=== PATIENT | male | born 1960 | race Caucasian/White ===

== ENCOUNTER 2017-02-02 14:33 | Emergency (ER) | payer MEDICAID ==
[~2017-02-02] VITALS: Ht 182.9 cm; Wt 94.5 kg
[~2017-02-02 14:33] MED LIST: LISI-660 PO; OMEP20 PO
[2017-02-02] MEDS ORDERED: LIDOCAINE HCL BUFFERED 1% 20 ML VIAL INJ ONE (16:30)
[2017-02-02 18:06] VITALS: BP 112/67
== END 2017-02-02 18:08 | disposition home or self-care (01) ==
LOC: EMS 14:34
DX: S61.012A Laceration without foreign body of left thumb without damage to nail, initial encounter (principal); F17.210 Nicotine dependence, cigarettes, uncomplicated; F41.9 Anxiety disorder, unspecified; F32.9 Major depressive disorder, single episode, unspecified; I10 Essential (primary) hypertension; W22.8XXA Striking against or struck by other objects, initial encounter; Y93.89 Activity, other specified; Y92.9 Unspecified place or not applicable; Y99.9 Unspecified external cause status
CPT/HCPCS: 12001; 99283; J3490

== ENCOUNTER 2017-02-17 00:41 | Emergency (ER) | payer MEDICAID ==
[~2017-02-17] VITALS: Ht 182.9 cm; Wt 94.0 kg
[2017-02-17] MEDS ORDERED: GABA-531 PO (00:48)
[2017-02-17] MEDS ORDERED: ASPI-556 PO (00:48)
[2017-02-17 03:44] LABS: BASOPHILS # (AUTO) 0.04 K/uL (0.00-0.20); BASOPHILS % (AUTO) 0.4 % (0.0-2.0); EOSINOPHILS # (AUTO) 0.28 K/uL (0.00-0.70); EOSINOPHILS % (AUTO) 2.54 % (1.0-6.0); HEMATOCRIT 45.2 % (41-53); HEMOGLOBIN 14.7 g/dL (13.5-17.5); LYMPHOCYTES # (AUTO) 2.5 K/uL (1.0-4.8); LYMPHOCYTES % (AUTO) 22.9 % (22.0-44.0); MEAN CORPUSCULAR HEMOGLOBIN 29.7 pg (26.0-34.0); MEAN CORPUSCULAR HGB CONC 32.6 G/dL (31.0-37.0); MEAN CORPUSCULAR VOLUME 91 fL (80-100); MONOCYTES # (AUTO) 0.9 K/uL (0.1-1.0); NEUTROPHILS # (AUTO) 7.3 K/uL (1.8-7.7); NEUTROPHILS % (AUTO) 66.2 % (40.0-70.0); PLATELET COUNT (AUTO) 276 K/uL (150-450); RED BLOOD CELL COUNT(AUTO) 4.96 MIL/uL (4.50-5.90); RED CELL DISTRIBUTION WIDTH 14.2 % (11.5-14.5); WHITE BLOOD COUNT (AUTO) 11.1 K/uL (4.5-11.0)
[2017-02-17 03:48] LABS: ANION GAP 9 mmol/L (8-16); CALCIUM, TOTAL 8.9 mg/dL (8.8-10.5); CARBON DIOXIDE 28 mmol/L (22-29); CHLORIDE 102 mmol/L (98-107); GLOMERULAR FILTR. RATE CALC > 60 mL/min (>60); POTASSIUM 4.2 mmol/L (3.5-5.1); SODIUM SERUM 139 mmol/L (136-145); UREA NITROGEN, BLOOD 10 mg/dL (7-18)
[2017-02-17] MEDS ORDERED: BACITRACIN 0.9 GM PACKET OINTMENT TP ONE (04:15)
[2017-02-17] MEDS ORDERED: ACETAMINOPHEN/CODEINE 300-30 MG TABLET PO ONE (04:15)
[2017-02-17] MEDS ORDERED: PERTUSS(ACELL),DIPH,TET VAC/PF 0.5 ML VIAL IM ONE (04:15)
[2017-02-17 05:02] VITALS: BP 129/74
== END 2017-02-17 05:05 | disposition home or self-care (01) ==
LOC: EMS 00:42
DX: S01.81XA Laceration without foreign body of other part of head, initial encounter (principal); S50.312A Abrasion of left elbow, initial encounter; R42 Dizziness and giddiness; I10 Essential (primary) hypertension; F17.210 Nicotine dependence, cigarettes, uncomplicated; Z79.82 Long term (current) use of aspirin; W19.XXXA Unspecified fall, initial encounter; Y93.89 Activity, other specified; Y92.89 Other specified places as the place of occurrence of the external cause; Y99.8 Other external cause status
CPT/HCPCS: 36415; 70450; 80048; 84484; 85025; 90471; 90715; 99285; 99406; G0480

== ENCOUNTER 2017-02-28 15:22 | Emergency (ER) | payer MEDICAID ==
[~2017-02-28] VITALS: Ht 182.9 cm; Wt 94.5 kg
[~2017-02-28 15:22] MED LIST changes: +ASPI-556 PO; +GABA-531 PO
[2017-02-28 16:25] LABS: BASOPHILS % (AUTO) 0.5 % (0.0-2.0); HEMATOCRIT 44.1 % (41-53); HEMOGLOBIN 14.9 g/dL (13.5-17.5); LYMPHOCYTES # (AUTO) 2.5 K/uL (1.0-4.8); LYMPHOCYTES % (AUTO) 21.5 % (22.0-44.0); MEAN CORPUSCULAR HEMOGLOBIN 30.3 pg (26.0-34.0); MEAN CORPUSCULAR HGB CONC 33.7 G/dL (31.0-37.0); MEAN CORPUSCULAR VOLUME 90 fL (80-100); MONOCYTES # (AUTO) 0.8 K/uL (0.1-1.0); MONOCYTES % (AUTO) 6.8 % (2.0-9.0); NEUTROPHILS # (AUTO) 8.1 K/uL (1.8-7.7); NEUTROPHILS % (AUTO) 69.2 % (40.0-70.0); PLATELET COUNT (AUTO) 306 K/uL (150-450); RED BLOOD CELL COUNT(AUTO) 4.91 MIL/uL (4.50-5.90); WHITE BLOOD COUNT (AUTO) 11.7 K/uL (4.5-11.0)
[2017-02-28 16:34] LABS: ANION GAP 10 mmol/L (8-16); CALCIUM, TOTAL 9.1 mg/dL (8.8-10.5); CARBON DIOXIDE 26 mmol/L (22-29); CHLORIDE 103 mmol/L (98-107); CREATININE 0.93 mg/dL (0.60-1.30); GLOMERULAR FILTR. RATE CALC > 60 mL/min (>60); POTASSIUM 3.8 mmol/L (3.5-5.1); SODIUM SERUM 139 mmol/L (136-145); UREA NITROGEN, BLOOD 10 mg/dL (7-18)
[2017-02-28 16:40] LABS: ALANINE AMINOTRANSFERASE 35 U/L (12-78); ALBUMIN 3.8 g/dL (3.4-5.0); ASPARTATE AMINOTRANSFERASE 19 U/L (15-37); BILIRUBIN,TOTAL 0.4 mg/dL (0.1-1.0); TOTAL PROTEIN, SERUM 7.4 g/dL (6.4-8.2)
[2017-02-28 18:40] VITALS: BP 115/82
== END 2017-02-28 18:53 | disposition home or self-care (01) ==
LOC: EMS 15:23
DX: F32.9 Major depressive disorder, single episode, unspecified (principal); F41.9 Anxiety disorder, unspecified; I10 Essential (primary) hypertension; F17.210 Nicotine dependence, cigarettes, uncomplicated; Z79.82 Long term (current) use of aspirin; Z86.73 Personal history of transient ischemic attack (TIA), and cerebral infarction without residual deficits
CPT/HCPCS: 36415; 80053; 85025; 99284; G0480

== ENCOUNTER 2020-01-15 16:50 | Emergency (ER) | payer MEDICAID ==
[~2020-01-15] VITALS: Ht 182.9 cm; Wt 111.8 kg
[~2020-01-15 16:50] MED LIST changes: +GABA-1181 PO; -GABA-531 PO
[2020-01-15] MEDS ORDERED: METO50 PO (16:57)
[2020-01-15] MEDS ORDERED: ATOR40TA28 PO (16:57)
[2020-01-15 19:47] VITALS: BP 130/81
== END 2020-01-15 20:17 | disposition home or self-care (01) ==
LOC: EMS 16:52
DX: S80.02XA Contusion of left knee, initial encounter (principal); F41.9 Anxiety disorder, unspecified; F32.9 Major depressive disorder, single episode, unspecified; I10 Essential (primary) hypertension; F17.210 Nicotine dependence, cigarettes, uncomplicated; Z90.49 Acquired absence of other specified parts of digestive tract; Z79.899 Other long term (current) drug therapy; Z79.82 Long term (current) use of aspirin; Z91.041 Radiographic dye allergy status; V03.99XA Pedestrian with other conveyance injured in collision with car, pick-up truck or van, unspecified whether traffic or nontraffic accident, initial encounter; Y93.89 Activity, other specified; Y92.89 Other specified places as the place of occurrence of the external cause; Y99.8 Other external cause status

== ENCOUNTER 2023-07-01 09:15 | Emergency (ER) | payer MEDICAID ==
[~2023-07-01] VITALS: Ht 175.3 cm; Wt 97.7 kg
[~2023-07-01 09:15] MED LIST changes: +ATOR40TA28 PO; -LISI-660 PO; +LISI-892 PO; +METO50 PO
[2023-07-01 09:16] VITALS: BP 158/86; PULSE 94; RESP 16; TEMP 98.6
[2023-07-01] MEDS ORDERED: OFLOXACIN 0.3% 5 ML OTIC SOLUTION AS ONE (09:30)
[2023-07-01] MEDS ORDERED: OFLO5DRO4 AS (09:31)
== END 2023-07-01 10:30 | disposition home or self-care (01) ==
LOC: EMS 09:21
DX: H60.92 Unspecified otitis externa, left ear (principal); F41.9 Anxiety disorder, unspecified; F32.A Depression, unspecified; I10 Essential (primary) hypertension; F17.210 Nicotine dependence, cigarettes, uncomplicated; Z90.49 Acquired absence of other specified parts of digestive tract; Z98.890 Other specified postprocedural states; Z91.040 Latex allergy status
CPT/HCPCS: 99283

== ENCOUNTER 2024-06-11 15:16 | Emergency (ER) | payer MEDICAID ==
[~2024-06-11] VITALS: Ht 185.4 cm; Wt 186.0 kg
[~2024-06-11 15:16] MED LIST changes: +OFLO5DRO4 AS
[2024-06-11 15:23] VITALS: BP 123/64; PULSE 110; RESP 20; TEMP 97.8; O2SAT 96
[2024-06-11] MEDS ORDERED: TRAZ-252 PO (15:23)
== END 2024-06-11 16:38 | disposition home or self-care (01) ==
LOC: EMS 15:16
DX: K59.00 Constipation, unspecified (principal); R10.30 Lower abdominal pain, unspecified; F32.A Depression, unspecified; I10 Essential (primary) hypertension; G82.20 Paraplegia, unspecified; F41.9 Anxiety disorder, unspecified; Z90.49 Acquired absence of other specified parts of digestive tract; Z79.82 Long term (current) use of aspirin; Z88.8 Allergy status to other drugs, medicaments and biological substances; Z91.041 Radiographic dye allergy status; Z86.73 Personal history of transient ischemic attack (TIA), and cerebral infarction without residual deficits; Z79.899 Other long term (current) drug therapy
CPT/HCPCS: 99281; Z7502